=== PATIENT | male | born 1940 | race Caucasian/White ===

== ENCOUNTER → 2018-01-19 16:12 | Outpatient (CLI) | payer MEDICARE, SELFPAY ==
--- NOTE | 2018-01-19 16:34 | CT_ITS ---
STUDY: CT BRAIN WITHOUT CONTRAST REASON FOR EXAM: Male, 78 years old. Fall. RADIATION DOSAGE (If Supplied By Facility): CTDIvol = ( 60.81 ) mGy, DLP = ( 1067.08 ) mGycm TECHNIQUE: Transaxial CT imaging of the brain was performed without administration of intravenous contrast material. Individualized dose optimization techniques were used for this CT. COMPARISON: 09/12/2014. FINDINGS: Normal soft tissue structures. Normal calvarium. There is mild cerebral atrophy with widening of the extra-axial spaces and ventricular dilatation. There are areas of decreased attenuation within the white matter tracts of the supratentorial brain, consistent with microvascular disease changes. Normal basal ganglia and thalami. Normal brainstem. There is mild cerebellar atrophy. There is no intracranial hemorrhage. There are no findings of an acute ischemic infarction. Normal visualized paranasal sinuses. CT/Brain/Head without Contrast IMPRESSION: No acute abnormality. Mild atrophy and White matter disease. Electronically Signed: Aayush Sargent MD at 17:07 EDT , Service support ,
== END ==
PROVIDERS: Family Provider Family Medicine; PCP Family Medicine
DX: S06.0X0A Concussion without loss of consciousness, initial encounter (principal); W19.XXXA Unspecified fall, initial encounter; S00.11XA Contusion of right eyelid and periocular area, initial encounter; R51 Headache
CPT/HCPCS: 70450

== ENCOUNTER → 2018-02-11 06:39 | Outpatient (CLI) | payer MEDICARE, SELFPAY ==
--- NOTE | 2018-02-11 09:21 | STRESSREP ---
Stress Test Report Pharmacologic myocardial perfusion stress test. 78-year-old male with a history of abnormal EKG test next Stress protocol: Resting EKG demonstrates sinus bradycardia with a rate of 60 bpm resting blood pressure is 138/92 mmHg. Occasional premature ventricular complexes are noted. 0.4 mg of regadenoson was infused per usual protocol followed by rapid intravenous saline flush injection continuous EKG monitoring was performed. Patient maintained sinus rhythm throughout the recording. There were frequent premature ventricular complexes noted which were mostly unifocal. The maximum heart rate attained was 83 bpm which was 58% of maximum predicted heart rate the maximum workload attained was 1 metabolic equivalent. At rest there were no ST or T-wave changes noted suggest ischemia at peak infusion no ST or T-wave changes were noted suggest ischemia. No clinical angina was noted the resting blood pressure 7 and 38/92 with a final blood pressure 120/82. Myocardial perfusion protocol. 14.1 mCi of technetium 99m sestamibi was injected at rest. 0.4 mg of regadenoson was infused per usual protocol peak infusion 44.4 mCi of technetium 99m sestamibi was injected stress images were obtained stress and rest images were reconstructed and compared in the short axis vertical long and horizontal long axis. Gated images were also obtained. Perfusion SPECT analysis. Review of the stress images demonstrate normal uptake of tracer noted in the septum anterior wall and lateral wall. The inferior wall demonstrates mildly reduced perfusion especially in the base to mid inferior wall. The resting images demonstrate mild improvement suggesting a mild amount of inferior ischemia on this scan. No previous infarct is noted. Gated SPECT analysis: Gated ejection fraction is 52%. Conclusion: Mildly abnormal pharmacologic myocardial perfusion stress test with a small amount of basal to mid inferior ischemia. Preserved ejection fraction.
== END ==
PROVIDERS: Family Provider Family Medicine; PCP Family Medicine
DX: R94.31 Abnormal electrocardiogram [ECG] [EKG] (principal); I49.3 Ventricular premature depolarization
CPT/HCPCS: 78452; 93017; A9500; A4216; J2785

== ENCOUNTER → 2018-03-02 09:37 | Day surgery (SDC) | payer MEDICARE, SELFPAY ==
--- NOTE | 2018-02-23 12:56 | RAD_ITS ---
STUDY: X-RAY CHEST REASON FOR EXAM: Male, 78 years old. Chest wall pain TECHNIQUE: PA and lateral views of the chest. COMPARISON: None. FINDINGS: There are interstitial fibrotic changes of the lungs. There is no demonstrated pleural abnormality. Normal size heart. Normal mediastinum and eliu. Normal visualized pulmonary arteries. There is atherosclerotic calcification of the aortic arch with tortuosity. There are diffuse degenerative changes of the visualized thoracic spine. Normal visualized ribs, clavicles, and shoulders. There is no demonstrated abnormality of the visualized soft tissue structures of the upper abdomen. RAD/Chest PA and Lateral IMPRESSION: Degenerative changes, as described above. No demonstrated acute cardiopulmonary process. Electronically Signed: Herminio Jo MD at 13:20 EDT , Service support ,
[2018-02-23 13:29] LABS: Absolute Neutrophil Count 3.9 X10^3/uL (2.0-7.7); Basophil% 1.5 % (0-1); Eosinophil# 0.36 X10^3/uL; Eosinophils% 5.3 % (0-5); Hematocrit 47.2 % (40-54); Hemoglobin 16.3 g/dl (13.0-16.5); Lymphocyte % 25.1 % (19-41); Mean Corp Hgb Conc 34.5 g/gl (32-36); Mean Corpuscular Hgb 30.9 pg (27.0-32.0); Mean Corpuscular Volume 89.6 fL (80-94); Mean Platelet Vol. 10.5 fl (6.2-12.0); Monocyte# 0.68 X10^3/uL; Neutrophil # 3.94 X10^3/uL (2.7-7.7); Neutrophil % 58.1 % (47-70); Platelet Count 241 K/mm3 (150-450); RBC Distribution Width CV 13.6 % (11.6-14.6); RBC Distribution Width SD 44.9 fl (35.1-43.9); Red Blood Count 5.27 M/mm3 (4.6-6.2); White Blood Count 6.8 K/mm3 (4.4-11.0)
[2018-02-23 13:42] LABS: International Normalized Ratio 1.1; POSITIVE COUNT NO; POSITIVE DIFFERENTIAL NO; POSITIVE MORPHOLOGY NO; Prothrombin Time (Protime)PT. 14.4 SECONDS (11.7-14.9)
[2018-02-23 13:52] LABS: Anion Gap 7 (5-15); BUN 14 mg/dL (7-18); BUN/Creat Ratio 10.5 RATIO (10-20); Calcium,Total 9.3 mg/dL (8.5-10.1); Chloride 111 mmol/L (98-107); Creatinine, Serum 1.33 mg/dL (0.70-1.30); EST Glomerular Filtration Rate 55 mL/min (>60); Est Glom Filt Rate - Afr Amer 67 mL/min (>60); Glucose 87 mg/dL (74-106); Potassium 4.2 mmol/L (3.5-5.1); Sodium Level 143 mmol/L (136-145)
[2018-02-27 11:41] VITALS: BMI 30.4
--- NOTE | 2018-03-02 11:09 | CL.D_ITS ---
Patient Name: MEREDITH BARRETT Study Date: 03/02/2018 Performing: Ho Dietz MD Ht: 66.14 inches 168 cm : 1940 Wt: 189.6 lbs 86 kg Age: 78 Gender: male BSA: 1.96 PROCEDURE(S) PERFORMED QL00-[id number]/COR/LV CLINICAL PROFILE AND INDICATIONS Indications: Syncope Heart Failure: None Stress/Imaging Stress Test w/SPECT MPI: Yes Result: Positive Low RiskStress Test with SPECT MPI: Positive Low Risk CAD Presentations: No Sxs, no angina. CONCLUSIONS Non obstructive coronary arteries RECOMMENDATIONS Medical therapy DESCRIPTION OF PROCEDURE The patient arrived to the procedure lab. The risks and benefits of the procedure as well as a full d escription of our services here and current unavailability of surgical backup were fully explained to the patient and/or their significant other prior to the catheterization. The Timeout was completed, verifying the correct patient and procedure. The patient's procedural site was prepped and draped in the usual fashion. Local anesthetic was given subcutaneously to right radial region with Lidocaine 2% . Using a modified Seldinger technique, arterial access was obtained via the right radial artery, a 6 Fr sheath was inserted. Left Coronary Artery selective angiography was performed in multiple views u sing a 5 Fr. 4.0 [place] catheter. Right Coronary Artery selective angiography was then performed in mu ltiple views using a 5 Fr. 4.0 [place] catheter. Left Ventriculography was performed in RODRIGUEZ projection using a 5 Fr. [place] catheter. LV to AO pullback pressures were then recorded.The arterial sheath wa s pulled and a TR Band was applied for hemostasis 16cc air inserted CORONARY ANGIOGRAPHY DOMINANCE: Left Dominant LEFT HEART ASSESSMENT Left Ventricular Ejection Fraction: by LV Gram 53 % Normal LV wall motion Normal Left Ventricular systolic function LEFT MAIN: Angiographically normal LEFT ANTERIOR DECENDING ARTERY: Mild luminal irregularities less than 30% CIRCUMFLEX ARTERY: Moderate luminal irregularities up to 50% RIGHT CORONARY ARTERY: Mild luminal irregularities less than 30% COMPLICATIONS No Complications PROCEDURE MEDICATIONS Fentanyl 50 mcg IV Versed 1 mg IV Oxygen: 2 L/min via nasal cannula Heparin diluted in 23cc Heparinized saline. Patient given 10cc IA of this solution. 03/02/2018 10:49:0 7 Verapamil 2.5mg, Ntg 100mcgs, 2000 units of Heparin diluted in 23cc Heparinized saline. Patient give n 10cc IA of this solution. 03/02/2018 10:49:07 SUMMARY OF HEMODYNAMIC DATA Time AIR REST ECG 10:02:25 AO 80/50 (64) SA 10:51:27 LV 80/-1, 2 10:58:59 LV 84/0, 2 10:59:06 LV 66/-4, 1 11:00:06 LVp 72/-2, 1 11:00:16 AOp 77/40 (56) 11:00:21 AOp 89/45 (63) 11:00:40 Signed By Ho Dietz MD On 03/02/2018 11:08:31 Ho Dietz MD
== END ==
PROVIDERS: Family Provider Family Medicine; PCP Family Medicine; Visit Provider Internal Medicine Cardiovascular Disease
DX: R94.39 Abnormal result of other cardiovascular function study (principal); R55 Syncope and collapse; E78.00 Pure hypercholesterolemia, unspecified; I10 Essential (primary) hypertension; I25.10 Atherosclerotic heart disease of native coronary artery without angina pectoris; K57.90 Diverticulosis of intestine, part unspecified, without perforation or abscess without bleeding; K21.9 Gastro-esophageal reflux disease without esophagitis; I73.9 Peripheral vascular disease, unspecified; G25.0 Essential tremor; Z79.82 Long term (current) use of aspirin; Z79.899 Other long term (current) drug therapy
CPT/HCPCS: 36415; 80048; 85025; 85610; 93458; 99152; 99153; J7040; Q9967; C1769; C1894

== ENCOUNTER → 2018-08-24 10:32 | Outpatient (REF) | payer SELFPAY | LOC: CVS 10:32 | PROVIDERS: Family Provider Family Medicine; PCP Family Medicine; Referring Provider Nurse Practitioner Family; Visit Provider Nurse Practitioner Family | DX: R00.2 Palpitations (principal) ==

== ENCOUNTER → 2019-03-04 | Outpatient (CLI) | payer MEDICARE, SELFPAY ==
[2018-08-19 11:10] VITALS: BMI 30.7
[2019-03-04 09:37] LABS: AST(SGOT) 25 U/L (15-37); Alanine Aminotransfer ALT/SGPT 30 U/L (16-61); Albumin, Serum 3.7 g/dL (3.2-5.0); Alkaline Phosphatase 62 U/L (45-117); Bilirubin, Direct 0.16 mg/dL (0.00-0.30); Cholesterol 144 mg/dL (200); Globulin 3.2 g/dL (2.2-4.2); High Density Lipoprotein 41 mg/dL; Protein, Total 6.9 g/dL (6.4-8.2); Triglycerides 120 mg/dL; Very Low Density Lipoprotein 24 mg/dL (5-40)
== END | disposition home or self-care (01) ==
LOC: LAB 08:10
PROVIDERS: Family Provider Family Medicine; PCP Family Medicine; Referring Provider Nurse Practitioner Family; Visit Provider Nurse Practitioner Family
DX: I25.10 Atherosclerotic heart disease of native coronary artery without angina pectoris (principal); E78.5 Hyperlipidemia, unspecified
CPT/HCPCS: 36415; 80061; 80076

== ENCOUNTER 2019-07-14 08:22 | Day surgery (SDC) | payer MEDICARE, SELFPAY ==
[2019-03-17 09:57] VITALS: BMI 30.7
[2019-07-14 08:50] VITALS: BP 141/82; PULSE 60; RESP 16; TEMP 36.5; O2SAT 97; BMI 29.2
[2019-07-14] MEDS: Lactated Ringers 1,000 ML 100 ML IV (09:00)
[2019-07-14] MEDS: Cefazolin 2 GM in 0.9% Normal Saline 100 ML IV (10:42)
--- NOTE | 2019-07-14 10:46 | DCINST_ITS ---
Discharge Diet: Light diet - advance as tolerated Discharge Activity: Return to Normal Activity Call your doctor if your incision/area has: Sudden Increased Bleeding Call your doctor if you observe: Fever of 101 or Higher Instructions: Adult Circumcision, Care After Circumcision Additional Instructions: APPLY NEOSPORIN TO CIRCUMCISION TWICE A DAY Allergies/Adverse Reactions: Allergies No Known Allergies Allergy (Verified 07/14/19 08:48) Medications to take at Discharge Aspirin [Aspirin, Baby] 81 mg PO DAILY@0800 09/12/14 Atenolol 50 mg PO DAILY 09/12/14 Lovastatin 40 mg PO QHS 09/12/14 Pantoprazole Sodium [Protonix] 40 mg PO DINNER 09/12/14 calcium carbonate 600 mg (1,500 mg)-vitamin D3 200 unit tablet 1 tab PO QDAY 02/16/18 cholecalciferol (vitamin D3) 1,000 unit (25 mcg) tablet 1,000 unit PO QDAY 02/16/18 Hydrocodone/Acetaminophen [Viola 5-325 Tablet] 1 ea PO Q4H PRN PRN 5 Days #14 tab 07/14/19 The following prescriptions were given: Hydrocodone/Acetaminophen [Viola 5-325 Tablet] 1 ea PO Q4H PRN PRN 5 Days #14 tab PRN Reason: Pain Prescription Printed Primary Care Physician: David Harris MD [Primary Care Provider] - Test Results: Test results from this visit will be discussed in further detail at your follow- up appointment, if applicable. Please Follow Up With: Remy Sosa MD When: in 2 weeks, please call to make an appointment.
[2019-07-14] MEDS: Bupivacaine Mpf 0.5% 30 ML VIAL (11:20)
--- NOTE | 2019-07-14 11:29 | PCM.OPRPT ---
Report of Operation Date of Procedure: 07/14/19 Pre-Operative Diagnosis: Phimosis after prior circumcision Post-Operative Diagnosis: Phimosis Surgery/Procedure Performed:: Redo circumcision, excision of excessive skin tissue and phimosis Description of Surgical Findings:: 79-year-old male who had a prior circumcision was not a complete circumcision and the foreskin left on the area has scarred back down causing chronic pain and discomfort not able to retract the foreskin not able to pull the penis out because of this we can proceed with a circumcision but he had a prior surgical circumcision that did not remove enough tissue so we can do a redo circumcision and removal of the excess of foreskin tissue. 79-year-old male taken back to the operating room at the smooth induction of anesthesia the penis and testicles are prepped and draped in usual sterile fashion we then prepped and draped the patient in usual fashion and inspected the penis the foreskin was over the head of the penis was not able to retract the foreskin over this very hard phimotic tissue, whitish in nature, I then pulled the foreskin up did a line all the way around the subcoronal area used electrocautery to remove the excess tissue I then dissected back over the hawley and then sub-coronally and dissected all the tissue of subcoronal he I then obtained hemostasis we then reanastomosed the foreskin tissue to the subcoronal tissue to complete the circumcision the redo I excised all the excess of tight phimotic foreskin at the completion of the circumcision stitches all the way around with 304 0 chromic he was cleaned and dressed dressings were placed. Taken back to PACU good condition. Drains: none - Admit VTE Documentation VTE Present on Admission: No VTE Mechan Device Prophylaxis: SCD's
[2019-07-14 11:39] VITALS: BP 141/82; BP 156/87; PULSE 70; RESP 16; TEMP 35.9; O2SAT 92
[2019-07-14 11:45] VITALS: BP 141/82; BP 146/85; PULSE 69; RESP 16; O2SAT 97
[2019-07-14 12:00] VITALS: BP 141/82; BP 153/89; PULSE 72; RESP 16; O2SAT 96
[2019-07-14 12:15] VITALS: BP 141/82; BP 155/90; PULSE 72; RESP 16; TEMP 36.1; O2SAT 94
[2019-07-14 13:35] VITALS: BP 141/82; BP 142/77; PULSE 65; RESP 16; TEMP 36.2; O2SAT 98
== END 2019-07-14 14:13 | disposition home or self-care (01) ==
LOC: SDC 08:23 → AC 08:25
PROVIDERS: Family Provider Family Medicine; PCP Family Medicine; Referring Provider Urology; Visit Provider Urology
PROC: (CPT 54161; principal; 2019-07-14 10:15)
DX: N47.1 Phimosis (principal); N47.6 Balanoposthitis; I10 Essential (primary) hypertension; H91.90 Unspecified hearing loss, unspecified ear; K44.9 Diaphragmatic hernia without obstruction or gangrene; E78.00 Pure hypercholesterolemia, unspecified; K21.9 Gastro-esophageal reflux disease without esophagitis; Z79.82 Long term (current) use of aspirin; Z79.899 Other long term (current) drug therapy; Z87.891 Personal history of nicotine dependence
CPT/HCPCS: 00920; 54161; J7120; J2405

== ENCOUNTER 2020-02-09 17:53 | Emergency (ER) | payer MEDICARE, SELFPAY ==
[2020-02-09 17:53] VITALS: BP 141/122; PULSE 71; RESP 18; TEMP 36.4; O2SAT 96; BMI 29.5
--- NOTE | 2020-02-09 18:04 | ED.RN ---
SMALL LACERATION WITH FINGERNAIL INVOLVEMENT 3RD FINGER, LARGE LACERATION INVOLVING MUCH OF 4TH FINGER WITH SKIN FLAP HANGING, SMALL LACERATION TO 5TH FINGER
--- NOTE | 2020-02-09 18:16 | ED.VISSUMM ---
- ER Visit Summary Date of Service: 02/09/20 Chief Complaint: Right long and ring finger lacerations History of Present Illness: The patient is a 80 M who presents with lacerations to his right long and ring fingers that occurred today. Patient states he was using a table saw when the piece of wood kicked back and cut his long and ring fingers. Patient describes his pain as throbbing. Patient states the pain is worse with movement. Patient is unsure of his last tetanus. Patient denies any paresthesias or weakness. Patient denies any other injuries. Physical Examination: Vital signs are stable. Patient is afebrile. Patient is in no acute distress. Skin is warm and dry. There is a 8 cm flap laceration on the ulnar aspect of the middle and distal phalanges of the right ring finger. There is also a nailbed laceration and nail plate laceration of the right long finger. There is moderate bleeding. There are no foreign bodies visualized. There is good range of motion in all digits. Capillary refill is less than 2 seconds in all digits. Sensation was intact to light touch in all digits. Test Results: X-rays of the right hand were obtained. There are multiple small avulsion fractures of the middle and distal phalanges of the right ring finger on the radial aspect. This was interpreted by the radiologist and myself. Emergency Department Course and Treatment: Patient was given a tetanus booster. The wounds were cleaned and irrigated with copious amounts of normal saline. The right long and ring fingers were anesthetized with 1% plain lidocaine via digital block. The wound on the right ring finger was closed with 12 simple interrupted #4 -0 nylon sutures under sterile technique. The nail plate of the right long finger was removed. The wound was closed with 2 simple interrupted #5-0 Vicryl sutures and one simple interrupted #4-0 nylon suture under sterile technique. Patient tolerated the procedure well. Bacitracin, Xeroform gauze, and tube gauze dressing was applied. Patient was given a prescription for short course of [place]. Patient was given a prescription for Keflex. Patient was referred to Dr. Conti for follow-up care in 3 to 5 days. Patient was instructed to return if any signs of infection or if worse in any way. Patient understood and was agreeable with the plan. All questions were answered. Disposition: Discharge home Impression: 1. Right ring finger laceration 2. Right long finger laceration This note was generated with [employer] dictation software. It may contain incorrect words, spelling, and punctuation that were not noted in review of the chart prior to signing ED Disposition - Plan for ED Patient: Disposition: Home or Assisted Living Diagnosis: Laceration of right ring finger, Laceration of right middle finger w/o foreign body with damage to nail Instructions: ED Laceration Hand Prescriptions: Cephalexin [Keflex] 500 mg PO Q6 #40 cap Prescription Printed Hydrocodone Bitart/Apap 5-325 [[place] 5MG-325MG] 1 tab PO Q6H PRN PRN 3 Days #10 tab PRN Reason: Pain Prescription Printed Referrals: David Harris MD [Primary Care Provider] - 3-5 Days Carroll Conti MD [STAFF PHYSICIAN] - 3-5 Days
--- NOTE | 2020-02-09 18:35 | RAD_ITS ---
STUDY: X-RAY - RIGHT HAND REASON FOR EXAM: Male, 80 years old. laceration to right hand with table saw TECHNIQUE: 3 view(s) of the hand. COMPARISON: None. FINDINGS: Normal radiocarpal articulation. Normal distal radioulnar joint. Normal visualized carpal bones. Normal carpal articulations Normal carpometacarpal articulation of the thumb. Normal second through fifth carpometacarpal joints. Normal metacarpi. Normal metacarpophalangeal joint of the thumb. Normal interphalangeal joint of the thumb. Normal proximal and distal phalanges of the thumb. Normal metacarpophalangeal joints of the second through fifth fingers. Normal proximal and distal interphalangeal joints of the second through fifth fingers. There is soft tissue laceration the fourth digit in association with comminuted cortical fractures of the distal shaft of the middle phalanx and base of the distal phalanx. Small metallic foreign body noted within the soft tissues dorsal to the proximal phalanx of the fifth digit RAD/Hand Min 3 Views IMPRESSION: Soft tissue laceration of the fourth digit with associated comminuted cortical fractures of the middle and distal phalanges Electronically Signed: David Joseph MD at 18:58 EDT , Service support ,
[2020-02-09] MEDS: Cefazolin 1 GM/50 ML BAG IV (18:59)
[2020-02-09] MEDS: BACITRACIN 15 GM Tube 1 APPLIC TOPICAL (19:03)
[2020-02-09 20:14] VITALS: BP 137/84; PULSE 80; RESP 18; O2SAT 97
== END 2020-02-09 20:32 | disposition home or self-care (01) ==
PROVIDERS: Emergency Provider Emergency Medicine; PCP Family Medicine
DX: S61.312A Laceration without foreign body of right middle finger with damage to nail, initial encounter (principal); S61.214A Laceration without foreign body of right ring finger without damage to nail, initial encounter; W31.2XXA Contact with powered woodworking and forming machines, initial encounter; Y93.9 Activity, unspecified; Y92.9 Unspecified place or not applicable; R05 Cough; R51 Headache
CPT/HCPCS: 12004; 11750; 11760; 73130; 90715; 96365; 96366; 99285; A4216

== ENCOUNTER → 2020-02-15 09:28 | Outpatient (CLI) | payer MEDICARE, SELFPAY ==
[2020-02-15 08:55] VITALS: BMI 29.5
--- NOTE | 2020-02-15 09:33 | RAD_ITS ---
STUDY: X-RAY - RIGHT HAND REASON FOR EXAM: Male, 80 years old. Table saw last night to the hand -- right middle, ring and little finger wounds TECHNIQUE: 3 view(s) of the hand. COMPARISON: None. FINDINGS: Normal radiocarpal articulation. Normal distal radioulnar joint. Normal visualized carpal bones. Normal carpal articulations Normal carpometacarpal articulation of the thumb. Normal second through fifth carpometacarpal joints. Normal metacarpi. Normal metacarpophalangeal joint of the thumb. Normal interphalangeal joint of the thumb. Normal proximal and distal phalanges of the thumb. Normal metacarpophalangeal joints of the second through fifth fingers. Normal proximal and distal interphalangeal joints of the second through fifth fingers. Normal phalanges of the second through fifth fingers. Soft tissue ulceration overlying the ulnar aspect of the distal interphalangeal joint of the fourth digit. Tiny radiopacities are seen within the soft tissues suggestive of foreign bodies. A tiny metallic densities also seen overlying the dorsal aspect of the distal portion of the proximal phalanx of the fifth digit. RAD/Hand Min 3 Views IMPRESSION: Soft tissue laceration and possible foreign bodies overlying the distal interphalangeal joint of the fourth digit. Tiny metallic density in the soft tissues overlying the dorsal aspect of the distal portion of the proximal fillings of the fifth digit. Electronically Signed: Tian Gamino, at 14:57 EDT , Service support ,
== END ==
PROVIDERS: PCP Family Medicine; Referring Provider Nurse Practitioner Family; Visit Provider Nurse Practitioner Family
DX: S62.634B Displaced fracture of distal phalanx of right ring finger, initial encounter for open fracture (principal); S62.624B Displaced fracture of middle phalanx of right ring finger, initial encounter for open fracture; W31.2XXA Contact with powered woodworking and forming machines, initial encounter; S61.306A Unspecified open wound of right little finger with damage to nail, initial encounter; S61.304A Unspecified open wound of right ring finger with damage to nail, initial encounter; S61.302A Unspecified open wound of right middle finger with damage to nail, initial encounter
CPT/HCPCS: 73130

== ENCOUNTER 2022-01-25 08:12 | Outpatient (CLI) | payer MEDICARE, SELFPAY ==
--- NOTE | 2022-01-25 08:15 | RAD_ITS ---
STUDY: AIR CONTRAST UPPER GI SERIES and esophagram REASON FOR EXAM: Male, 82 years old. DYSPHAGIA FLUOROSCOPY TIME (if s. Upplied): (1 minute and 1 seconds.) minutes/seconds. 16 images were obtained. TECHNIQUE: SINGLE CONTRAST AND AIR CONTRAST FLUOROSCOPIC IMAGES. COMPARISON: None. FINDINGS: The cervical esophagus demonstrates normal motility without aspiration. There is no stricture or extrinsic mass effect. No intraluminal polypoid mass is identified. The thoracic esophagus distends well without stricture or mucosal fold thickening. No mucosal ulcerations are identified. There is no extrinsic mass effect. There are no diverticula. Large hiatal hernia with gastroesophageal reflux. The patient ingested a 12 mm tablet of barium without any difficulty. The stomach distends well without mucosal fold thickening or mucosal ulceration. There is no intraluminal mass. The duodenal bulb is freely distensible without deformity or ulceration. The duodenal sweep is normal in position and caliber. RAD/Upper GI w/BA Swallow IMPRESSION: Large hiatal hernia with gastroesophageal reflux. Electronically Signed: Tian Gamino MD at 12:31 EDT ,
== END 2022-01-25 23:59 | disposition home or self-care (01) ==
LOC: RAD 08:14
PROVIDERS: PCP Family Medicine; Referring Provider Family Medicine; Visit Provider Family Medicine
DX: R13.10 Dysphagia, unspecified (principal)
CPT/HCPCS: 74246

== ENCOUNTER 2022-05-30 08:34 | Day surgery (SDC) | payer MEDICARE, SELFPAY ==
[2022-05-30] VITALS (7 sets, daily range): BP systolic 81–142; BP diastolic 44–73; PULSE 52–68; RESP 16–18; TEMP 36.3–36.9; O2SAT 92–99; BMI 31.4
[2022-05-30] MEDS: Lactated Ringers 1,000 ML 15 ML IV (09:02)
--- NOTE | 2022-05-30 09:10 | HP.PCM_ITS ---
History and Physical Date of Admission: 05/30/22 UGO BARRETT, is a 82 M who presents to the office today for Initial consult. Artur established with this clinic 04.03.22 with referral from PCP to evaluate reflux and dysphagia. Dysphagia with food difficulty for the last several years with varying intensity by the day; denies emergent intervention/Heimlich maneuver. Reflux onset several years prior; symptoms present intermittently. Known hiatal hernia. Reflux managed with Protonix 40mg QD. EGD last performed several years ago; hiatal hernia. PMH CKD stage 3, CAD, diverticulosis, HTN, tremor, hyperlipidemia. Barium swallow 01.25.22 finding large hiatal hernia with GERD. ROS Const Constitutional: No fatigue, malaise, night sweats, weight change, sleep problems, abnormal sleep pattern or change in appetite ENT ENT: No difficulty swallowing, hoarseness or sore throat Cardio Cardiology: No chest pain at rest Gastro GI: No abdominal pain, belching, bloating, change in bowel habits, change in stool character, coffee ground emesis, constipation, cramping, diarrhea, difficulty swallowing, feeling full early, excessive flatus, incontinent of stools, Vomiting blood/hematemesis, Blood in stool, loose stools, Black,tarry stools, nausea/dyspepsia, pain with swallowing, vomiting or other Musc Musculoskeletal: No joint pain Skin Skin: No yellowing of the eye or itchy eyes Neuro Neurology: No behavioral changes Psych Psychiatric: No abnormal sleep pattern, No anxiety, No behavioral changes, No change in appetite and No depression Endo Endocrine: No fatigue or weight change Aller/Imm Allergy/Immunologic: No itchy eyes Daniel/Lymp Hematologic/Lymphatic: No easy bleeding or easy bruising Exam Const General: cooperative and comfortable Nutritional Appearance: average body habitus and well nourished [facility] Head: normal to inspection Ears: hearing grossly normal bilaterally Nose: external nose normal Face and sinus: normal facial exam Mouth: oral mucosae normal Throat: posterior oropharynx normal Eyes General: appearance normal, both eyes and all related structures Neck Neck: normal visual inspection Chest Chest palpation & inspection: normal inspection of the chest and normal palpation of entire chest wall Resp Effort & Inspection: normal respiratory effort Auscultation: Bilateral: Clear to Auscultation Cardio Palpation: normal PMI Rate: regular rate Rhythm: regular rhythm GI Inspection: normal to inspection Auscultation: normal bowel sounds Percussion: normal to percussion Palpation: no hepatosplenomegaly Skin General: no rashes or lesions noted Neuro General: patient alert Extrem General: normal to inspection Psych Affect: normal affect Quality Reporting Tobacco Screening ([facility] 138) Smoking Status: Former smoker Assessment and Plan Assessment and Plan (1) GERD (gastroesophageal reflux disease): ?Status:?Chronic ?Plan - Dr. Rubio Friend, DO: He is not having a lot of heartburn at this time.? He does get occasional chest pain when bending over and short of breath when bending over.? By his imaging he does have a large what appears to be sliding hiatal hernia.? I am suspecting that he has associated esophageal ring from acid or bile pooling into the hiatal hernia leaving the thoracic esophagus and gastric esophagus.? I would not change his protonix at this time until we have properly staged him. (2) Dysphagia: ?Status:?Acute ?Plan - Dr. Rubio Friend, DO: He will need to undergo an upper endoscopy.? The differential diagnosis for esophageal dysphagia does include esophageal ring, esophageal stenosis, sliding hiatal hernia.? He is not displaying any symptoms of organoaxial rotation volvulus formation of the stomach.? However I will be able to assess for any chronic is signs of involution in his upper GI tract when he undergoes upper endoscopy. He was explained alternatives, risk, benefits including understanding bleeding, infection, sepsis, perforation, need for emergent surgery . I have re-examined the patient. There are no clinical changes since date of exam.
--- NOTE | 2022-05-30 09:45 | EGD_PTH ---
PATIENT: MEREDITH BARRETT LOC: EN U#:[id number] AGE/SX: 82/M ROOM: RE05/30/[address]: Dr. Ramiro Patton DO : 1940 BED: DIS: 05/30/2022 SPEC #: [id number] RECD: 05/30/22 12:37 STATUS: JOE RETristin #: [id number] JUSTIN: 05/30/22 09:[address]: Ramiro Patton DEPT: SURGICAL PATHOLOGY RECD BY: Whit Portillo ENTERED: 05/30/22 13:40 SP TYPE: EGD BIOPSY LADARIUS DR: Dr. David Harris MD Tissues: Esophagus, NOS Procedures: Special Stain Group II Surgery Specimen Level IV Alcian Blue/PAS (control) HEADER OPERATION: EGD (MAC), biopsy, dilation PRE-OP DIAGNOSIS: GERD, dysphagia TISSUE SUBMITTED: Distal esophagus biopsy MICROSCOPIC DIAGNOSIS Distal esophagus, biopsy: Fragments of gastroesophageal mucosa with chronic inflammation. Intestinal metaplasia (goblet cell metaplasia) not identified. See comment. JOVANY:ha 05/31/2022 COMMENT Alcian blue/PAS stain with matched control is used in the evaluation of the specimen. MICROSCOPIC DESCRIPTION Slides are reviewed. GROSS DESCRIPTION Received in fixative is one container labeled with the patient's name and designated distal esophagus biopsy. The specimen consists of multiple irregular fragments of light trammell soft tissue that in aggregate measure 1 x 0.3 x 0.1 cm. The specimen is totally submitted in one cassette. / JOVANY:ha 05/30/2022 TC:3 CPT: 56643, 38701
--- NOTE | 2022-05-30 10:17 | OP.EGD_ITS ---
Patient Name: Artur Bone Procedure Date: 05/30/2022 9:55 AM Date of : 1940 Age: 82 Procedure: Upper GI endoscopy Indications: Dysphagia Providers: Ramiro Patton DO Medicines: Monitored Anesthesia Care Patient Profile: This is an 82 year old male. Refer to note in patient chart for documentation of history and physical. Patient has symptoms. He is status post EGD for dilation. Complications: No immediate complications. Procedure: Pre-Anesthesia Assessment: - Prior to the procedure, a History and Physical was performed, and patient medications and allergies were reviewed. The patient is competent. The risks and benefits of the procedure and the sedation options and risks were discussed with the patient. All questions were answered and informed consent was obtained. Patient identification and proposed procedure were verified by the physician in the pre-procedure area. Mental Status Examination: alert and oriented. Airway Examination: normal oropharyngeal airway and neck mobility. Respiratory Examination: clear to auscultation. CV Examination: normal. Prophylactic Antibiotics: The patient does not require prophylactic antibiotics. Prior Anticoagulants: The patient has taken no previous anticoagulant or antiplatelet agents. ASA Grade Assessment: II - A patient with mild systemic disease. After reviewing the risks and benefits, the patient was deemed in satisfactory condition to undergo the procedure. The anesthesia plan was to use moderate sedation / analgesia (conscious sedation). Immediately prior to administration of medications, the patient was re-assessed for adequacy to receive sedatives. The heart rate, respiratory rate, oxygen saturations, blood pressure, adequacy of pulmonary ventilation, and response to care were monitored throughout the procedure. The physical status of the patient was re-assessed after the procedure. After obtaining informed consent, the endoscope was passed under direct vision. Throughout the procedure, the patient's blood pressure, pulse, and oxygen saturations were monitored continuously. The gastroscope was introduced through the mouth, and advanced to the second part of duodenum. The upper GI endoscopy was accomplished without difficulty. The patient tolerated the procedure well. Scope In: 10:05:54 AM Scope Out: 10:12:20 AM Total Procedure Duration Time 0 hours 6 minutes 26 seconds Findings: Mucosal changes including ringed esophagus were found in the lower third of the esophagus. Biopsies were obtained from the proximal and distal esophagus with cold forceps for histology of suspected eosinophilic esophagitis. Verification of patient identification for the specimen was done. Estimated blood loss was minimal. A moderate Schatzki ring was found at the gastroesophageal junction. A guidewire was placed and the scope was withdrawn. Dilation was performed with a Savary dilator with no resistance at 60 Fr. The dilation site was examined following endoscope reinsertion and showed moderate improvement in luminal narrowing. Estimated blood loss was minimal. A large hiatal hernia was present. The first portion of the duodenum was normal. Impression: - Esophageal mucosal changes consistent with eosinophilic esophagitis. Biopsied. - Moderate Schatzki ring. Dilated. - Large hiatal hernia. - Normal first portion of the duodenum. Recommendation: - Discharge patient to home. - Resume previous diet. - Continue present medications. - Await pathology results. Procedure Code(s): --- Professional --- 70995, Esophagogastroduodenoscopy, flexible, transoral; with insertion of guide wire followed by passage of dilator(s) through esophagus over guide wire 86785, 59,51, Esophagogastroduodenoscopy, flexible, transoral; with biopsy, single or multiple CPT copyright 2017 [employer]. All rights reserved. The codes documented in this report are preliminary and upon administrative technician review may be revised to meet current compliance requirements. Ramiro Patton DO 05/30/2022 10:17:24 AM This report has been signed electronically. Number of Addenda: 1 Note Initiated On: 05/30/2022 9:55 AM Addendum Number: 1 Addendum Date: 08/01/2022 6:28:19 AM MAC was used as sedation for this procedure. Ramiro Patton DO 08/01/2022 6:28:24 AM This report has been signed electronically.
--- NOTE | 2022-05-30 10:17 | OP.CCLET_ITS ---
08/01/2022 David Harris MD Re : Upper GI endoscopy procedure for Artur Bone Dear Dr. Harris This procedure was performed on May. My impressions and recommendations are as follows: Impressions : - Esophageal mucosal changes consistent with eosinophilic esophagitis. Biopsied. - Moderate Schatzki ring. Dilated. - Large hiatal hernia. - Normal first portion of the duodenum. Recommendations : - Discharge patient to home. - Resume previous diet. - Continue present medications. - Await pathology results. My findings are described in the full procedure note, which is enclosed. If I can be of further assistance, please feel free to contact me at . Sincerely, Ramiro Patton, 05/30/2022 10:17:24 AM This report has been signed electronically.
== END 2022-05-30 11:01 | disposition home or self-care (01) ==
LOC: EN 08:34 → AC 08:38
PROVIDERS: PCP Family Medicine; Referring Provider Family Medicine; Visit Provider Internal Medicine Gastroenterology
PROC: 0DJ08ZZ Inspection of Upper Intestinal Tract, Via Natural or Artificial Opening Endoscopic (ICD-10-PCS; CPT 43235; principal; 2022-05-30 09:40)
DX: K20.0 Eosinophilic esophagitis (principal); I73.9 Peripheral vascular disease, unspecified; I10 Essential (primary) hypertension; I25.10 Atherosclerotic heart disease of native coronary artery without angina pectoris; N40.0 Benign prostatic hyperplasia without lower urinary tract symptoms; F41.9 Anxiety disorder, unspecified; E78.00 Pure hypercholesterolemia, unspecified; Z79.82 Long term (current) use of aspirin; Z79.899 Other long term (current) drug therapy; E66.9 Obesity, unspecified; K44.9 Diaphragmatic hernia without obstruction or gangrene; Z68.31 Body mass index [BMI] 31.0-31.9, adult; K22.2 Esophageal obstruction; K21.9 Gastro-esophageal reflux disease without esophagitis
CPT/HCPCS: 43239; 43248; 88305; 88313; J7120; C1769; J2405

== ENCOUNTER 2023-07-07 16:33 | Emergency (ER) | payer MEDICARE, SELFPAY ==
[2023-07-07 16:36] VITALS: BP 148/46; PULSE 65; RESP 17; TEMP 36.6; O2SAT 97; BMI 32.1
--- NOTE | 2023-07-07 19:15 | EDS_ITS ---
<Statement entered by Angely Gilmore MD - 07/07/23 23:15> I have personally performed a face to face assessment of the patient and have reviewed the YAKELIN Note. Patient presents due to concern for low heart rate. He and his were walking [place] of the [place] today. They stopped today both sponsored by [facility] where they were checking vital signs. Patient states that they told him his heart rate was only in the 40s. As they are walking out of the fair patient's thought he might of been breathing slightly heavier than normal and wanted to have him checked out. Patient has no complaints at this time. Patient sitting upright in bed no acute distress. Head neck examination unremarkable. Heart is regular rate and rhythm. Lung sounds are clear. Abdomen is soft and nontender. Neuro exam is normal. Patient placed on environmental monitoring specialist. EKG is sinus rhythm with occasional PVCs. Portable chest x-ray per my interpretation was chronic changes with no acute findings. Patient states that his heart rate was checked with a pulse ox meter on his finger. I advised him that especially with PVCs sometimes this would not rate every beat. At this time I see no evidence of arrhythmia or concern. I do not feel blood work is necessary at this time. Patient encouraged to return for any concerns or symptoms. HPI History of Present Illness Chief Complaint: General Illness Narrative Narrative: Patient presenting today due to an episode of bradycardia that occurred this afternoon. [place] a [place] medical tent that was offering a free vitals check. He is to obtain his vitals checked and his heart rate was in the 40s. Patient then began walking around the fair with his and his thought that he was breathing heavier than normal and wanted him to come in for evaluation. He denies any fever, chills, shortness of breath, and chest pain. [facility] Medical History Abnormal stress test Alcohol use Anxiety Atherosclerosis of [place] coronary artery of [place] heart without angina pectoris BPH (benign prostatic hyperplasia) Cardiology follow-up encounter Chewing tobacco use Claudication Contact with powered saw as cause of accidental injury Difficulty swallowing Diverticulosis Easy bruising Essential (primary) hypertension Excessive bleeding Frequent headaches Gastric reflux GERD (gastroesophageal reflux disease) Hearing problem High cholesterol History of echocardiogram History of hiatal hernia History of irregular heartbeat History of pain when walking History of stress test Hyperlipidemia Injury of back Injury of head and neck Large hiatal hernia Obesity Open fracture of distal phalanx of right ring finger Open fracture of middle phalanx of right ring finger Open wound of right little finger with damage to nail Open wound of right middle finger with damage to nail Open wound of right ring finger with damage to nail Pharyngoesophageal dysphagia Premature ventricular contractions Syncope Tremor Tremors of nervous system Wears dentures Wears glasses Home Medications aspirin 81 mg chewable tablet 81 mg PO DAILY@0800 09/12/14 [History Last Taken 06/26/19] atenolol 50 mg tablet 50 mg PO DAILY htn 09/12/14 [History Last Taken 05/30/22 06:00] lovastatin 40 mg tablet 40 mg PO QHS 09/12/14 [History Last Taken Unknown] calcium carbonate 600 mg-vitamin D3 5 mcg (200 unit) tablet (Calcium 600 with Vitamin D3) 1 tab PO QDAY 02/16/18 [History Last Taken Unknown] cholecalciferol (vitamin D3) 25 mcg (1,000 unit) tablet 1,000 unit PO BID 02/16/18 [History Last Taken Unknown] primidone 50 mg tablet 1 tab PO DAILY 05/27/22 [History Last Taken Unknown] sildenafil 100 mg tablet 100 mg PO DAILY PRN ERECTILE DISFUNSCTION 05/27/22 [History Last Taken Unknown] lansoprazole 30 mg capsule,delayed release 30 mg PO DAILY #30 caps 09/30/22 [Rx Last Taken Unknown] Allergy/AdvReac Type Severity Reaction Status Date / Time No Known Allergies Allergy Verified 07/07/23 16:38 Family History Father Diabetes Sister Breast cancer Colon cancer Surgical History History of cardiac catheterization History of colonoscopy History of esophagogastroduodenoscopy (EGD) History of left heart catheterization (02/2018) History of transurethral resection of prostate Hx of circumcision Hx of surgical procedure Social History Smoking Status: Current some day smoker tobacco type: smokeless tobacco ROS ROS ED Constitutional Constitutional ED: Denies chills or fever(s) Cardiovascular Cardiovascular: Denies chest pain or palpitations Respiratory/Chest Respiratory/Chest: Denies cough or dyspnea Gastrointestinal Gastrointestinal: Denies abdominal pain, nausea or vomiting Musculoskeletal Musculoskeletal: Denies arthralgias or myalgias Integumentary Denies rash Neurologic Neurologic: Denies weakness EXAM Physical Exam Const Vital Signs: 07/07/23 16:36 07/07/23 19:26 07/07/23 19:27 Temperature 97.9 F Temperature Source Temporal Pulse Rate 65 70 Respiratory Rate 17 16 Respiratory Effort Normal Non-Labored Blood Pressure 148/46 H 165/79 H Blood Pressure Mean 80 107 Pulse Ox 97 98 Oxygen Delivery Method Room Air Room Air Positive well nourished, well developed and no apparent distress General Appearance ED: well developed HEENT Reports normocephalic and head/scalp atraumatic Mouth ED: Yes moist mucous membranes normal Eyes PERRL and EOMs intact bilaterally Neck full ROM and supple Chest Wall inspection of chest normal Resp normal respiratory effort and clear to auscultation bilaterally Cardio regular rate and regular rhythm GI soft to palpation, non-tender, non-distended and no masses Back/Spine normal ROM and normal to inspection Extremity normal to inspection and full ROM Neuro oriented x3, CN's II-XII intact bilaterally, moves all extremities, no focal motor deficits and no sensory deficits noted Sensorium / Orientation: awake and alert Psych mental status grossly normal and thought process normal Skin no rashes or lesions noted and no wounds MDM MDM MDM Narrative Medical decision making narrative: Patient presenting today for examination due to his becoming concerned that he was breathing heavier than normally while at the [place] today. He reports that he did not feel short of breath while at the fair, he was simply hot and they were doing a lot of walking. There was a medical tent that he goes to every year to have his vitals checked and his pulse was supposedly in the 40s, however this could have been very inaccurate. His became concerned and thought that he should come in for evaluation. He is well-appearing and in no acute distress, he is 98% on room air, slightly hypertensive but otherwise vitals are unremarkable. He reports that he feels completely normal. He is not having any chest pain or shortness of breath here. EKG will be obtained to rule out arrhythmia and shows sinus rhythm with occasional PVCs. Chest x-ray obtained and reveals no acute findings. I do not feel that any laboratory work is indicated at this time. Patient will be discharged home in stable condition and is comfortable with plan. Radiography X-Ray: Read by ED Physician and Read by Radiologist Diagnostic Testing: Clinical Impression(s) from Imaging Studies Chest X-Ray 07/07/23 19:30 IMPRESSION: No acute findings in the chest. Electronically Signed: Hiram Paz MD at 20:03 EDT , EKG Initial EKG: Comments: 64 bpm, sinus rhythm with occasional PVCs, no ST elevation, r eviewed and interpreted by attending ED physician. Discharge Plan Triage Chief Complaint: General Illness ED Midlevel Provider: Cathleen Matias ED Provider: Angely Gilmore Dx/Rx/DC Orders Clinical Impression: Essential (primary) hypertension, Well adult exam Instructions: ED High Blood Pressure Hypertension Prescriptions: No Action cholecalciferol (vitamin D3) 1,000 unit tablet 1,000 unit PO BID calcium carbonate-vitamin D3 [Calcium 600 with Vitamin D3] 600 mg(1,500mg) - 200 unit tablet 1 tab PO QDAY lansoprazole 30 mg capsule,delayed release(DR/EC) 30 mg PO DAILY Qty: 30 0RF lovastatin 40 MG tablet 40 mg PO QHS Patient Comments: TK 1 T PO D WITH DINNER aspirin 81 MG tablet,chewable 81 mg PO DAILY@0800 Patient Comments: stoped for surgery. atenolol 50 MG tablet 50 mg PO DAILY Patient Comments: TK ONE T PO ONCE D primidone 50 mg tablet 1 tab PO DAILY sildenafil 100 mg Tablet 100 mg PO DAILY PRN (Reason: ERECTILE DISFUNSCTION) Rx Instructions: administer 30 minutes to 4 hours before activity Primary Care Provider: David Harris Referrals: David Harris MD [Primary Care Provider] - 5-7 Days Activity Restrictions/Additional Instructions: Please follow-up with your PCP and return for any worsening of your symptoms. Disposition Disposition: Home, Self Care Discharge Date/Time: 07/07/23 20:23
--- NOTE | 2023-07-07 19:16 | EKG12_ITS ---
Test Reason : DYSRHYTHMIA Blood Pressure : / mmHG Vent. Rate : 064 BPM Atrial Rate : 064 BPM P-R Int : 208 ms QRS Dur : 106 ms QT Int : 420 ms P-R-T Axes : 041 -07 029 degrees QTc Int : 433 ms Sinus rhythm with occasional Premature ventricular complexes Otherwise normal ECG Confirmed by ASIA IQBAL, STALIN ([id number]), television news video editor SREE KNOX ([id number]) on 07/10/2023 1:55:39 PM Referred By: Confirmed By:STALIN BETANCOURT MD
[2023-07-07 19:27] VITALS: BP 165/79; PULSE 70; RESP 16; O2SAT 98
--- NOTE | 2023-07-07 19:30 | RAD_ITS ---
EXAM: XR CHEST, 1 VIEW CLINICAL INDICATION: sob TECHNIQUE: Frontal view of the chest. COMPARISON: 02/23/2018 FINDINGS: LUNGS AND PLEURAL SPACES: Retrocardiac opacity compatible with a hiatal hernia. No pneumothorax. No effusion. HEART: Unremarkable. Cardiac silhouette not enlarged. MEDIASTINUM: See above. BONES/JOINTS: Unremarkable. SOFT TISSUES: Unremarkable. RAD/Chest 1 View (Portable) IMPRESSION: No acute findings in the chest. Electronically Signed: Hiram Paz MD at 20:03 EDT ,
== END 2023-07-07 20:23 | disposition home or self-care (01) ==
PROVIDERS: Emergency Provider Emergency Medicine; PCP Family Medicine; Visit Provider Emergency Medicine
DX: Z00.00 Encounter for general adult medical examination without abnormal findings (principal); I10 Essential (primary) hypertension; I25.10 Atherosclerotic heart disease of native coronary artery without angina pectoris; E78.00 Pure hypercholesterolemia, unspecified; Z79.899 Other long term (current) drug therapy; Z79.82 Long term (current) use of aspirin; K21.9 Gastro-esophageal reflux disease without esophagitis
CPT/HCPCS: 71045; 93005; 99282

== ENCOUNTER 2024-02-09 10:29 | Emergency (ER) | payer MEDICARE, SELFPAY ==
[2024-02-09 10:29] VITALS: BP 152/89; PULSE 87; RESP 18; TEMP 36.3; O2SAT 96; BMI 31.2
--- NOTE | 2024-02-09 11:03 | CT_ITS ---
STUDY: CT CERVICAL SPINE WITHOUT CONTRAST REASON FOR EXAM: Male, 84 years old. Laceration to the back of the head following a fall. RADIATION DOSAGE (If Supplied By Facility): CTDIvol = ( 26.95 ) mGy, DLP = ( 563.67 ) mGycm TECHNIQUE: High resolution transaxial imaging was performed without contrast material. Sagittal and coronal images were reconstructed. Individualized dose optimization techniques were used for this CT. COMPARISON: None FINDINGS: Normal craniovertebral junction. There are degenerative changes of the anterior atlantoaxial articulation. Normal odontoid process. There is straightening of the normal cervical lordosis. Normal vertebral bodies and posterior osseous elements. C2-3: Facet joint osteoarthritis and hypertrophy on the right side. Uncovertebral arthrosis. Mild degree of bilateral neural foraminal stenosis more prominent on the right side. C3-4: Facet joint osteoarthritis and hypertrophy more prominent on the left side. Minimal anterolisthesis of C3 on C4 most likely secondary to the facet joint osteoarthritis. C4-5: Marked degree of disc space narrowing. Spondylosis. Uncovertebral arthrosis and facet joint osteoarthritis on the right side causing moderate degree of right neural foraminal stenosis. C5-6: Marked degree of disc space narrowing. Spondylosis. Uncovertebral arthrosis. Moderate degree of right neural foraminal stenosis. C6-7: Marked degree of disc space narrowing. Spondylosis. Mild degree of bilateral neural foraminal stenosis. C7-T1: Marked degree of disc space narrowing and spondylosis. Calcification of the carotid bifurcations bilaterally. CT/Spine Cervical without Contras IMPRESSION: Multilevel degenerative changes, as described above. Electronically Signed: Tian Gamino MD at 12:11 EDT ,
--- NOTE | 2024-02-09 11:03 | CT_ITS ---
STUDY: CT BRAIN WITHOUT CONTRAST REASON FOR EXAM: Male, 84 years old. Head injury and laceration. RADIATION DOSAGE (If Supplied By Facility): CTDIvol = ( 44.99 ) mGy, DLP = ( 745.49 ) mGycm TECHNIQUE: Transaxial CT imaging of the brain was performed without administration of intravenous contrast material. Individualized dose optimization techniques were used for this CT. COMPARISON: Comparison is made with prior study dated January 19, 2018. FINDINGS: Small scalp hematoma overlying the posterior left parietal occipital bone. Normal calvarium. There is mild cerebral atrophy with widening of the extra-axial spaces and ventricular dilatation. There are areas of decreased attenuation within the white matter tracts of the supratentorial brain, consistent with microvascular disease changes. Normal basal ganglia and thalami. Normal brainstem. Normal cerebellum. There is no intracranial hemorrhage. There are no findings of an acute ischemic infarction. Atherosclerotic calcification of the cavernous portions of the internal carotid arteries bilaterally. Normal visualized paranasal sinuses. CT/Brain/Head without Contrast IMPRESSION: Chronic involutional changes of the brain. Small scalp hematoma overlying the posterior left parietal occipital bone. Electronically Signed: Tian Gamino MD at 12:13 EDT ,
--- NOTE | 2024-02-09 11:05 | EX.ED.GENINJ ---
HPI <MITZY Dukes - Last Filed: 02/09/24 17:13> History of Present Illness Chief Complaint: Laceration Narrative Narrative: Patient presenting today due to a mechanical fall that occurred this morning. He was outside on his way to feed his pony but he wanted to tap on the window of his house to say hello to his cat, he was standing on a cement block when he slipped and fell backwards, hitting his head on a cement planter. There was no LOC. He was on Eliquis for a DVT from the beginning of September until 9 days ago. He reports pain to the back of his head and to his neck. He does have a laceration to his posterior scalp, tetanus is up-to-date. He denies any other injury. [facility] <MITZY Dukes - Last Filed: 02/09/24 17:13> [facility] Medical History Abnormal stress test Alcohol use Anxiety Atherosclerosis of [place] coronary artery of [place] heart without angina pectoris BPH (benign prostatic hyperplasia) Cardiology follow-up encounter Chewing tobacco use Claudication Contact with powered saw as cause of accidental injury Difficulty swallowing Diverticulosis Easy bruising Essential (primary) hypertension Excessive bleeding Frequent headaches Gastric reflux GERD (gastroesophageal reflux disease) Hearing problem High cholesterol History of echocardiogram History of hiatal hernia History of irregular heartbeat History of pain when walking History of stress test Hyperlipidemia Injury of back Injury of head and neck Large hiatal hernia Obesity Open fracture of distal phalanx of right ring finger Open fracture of middle phalanx of right ring finger Open wound of right little finger with damage to nail Open wound of right middle finger with damage to nail Open wound of right ring finger with damage to nail Pharyngoesophageal dysphagia Premature ventricular contractions Syncope Tremor Tremors of nervous system Wears dentures Wears glasses Home Medications aspirin 81 mg chewable tablet 81 mg PO DAILY@0800 09/12/14 [History Last Taken 06/26/19] atenolol 50 mg tablet 50 mg PO DAILY htn 09/12/14 [History Last Taken 05/30/22 06:00] lovastatin 40 mg tablet 40 mg PO QHS 09/12/14 [History Last Taken Unknown] calcium carbonate 600 mg-vitamin D3 5 mcg (200 unit) tablet (Calcium 600 with Vitamin D3) 1 tab PO QDAY 04/23/18 [History Last Taken Unknown] cholecalciferol (vitamin D3) 25 mcg (1,000 unit) tablet 1,000 unit PO BID 02/16/18 [History Last Taken Unknown] primidone 50 mg tablet 1 tab PO DAILY 05/27/22 [History Last Taken Unknown] sildenafil 100 mg tablet 100 mg PO DAILY PRN ERECTILE DISFUNSCTION 05/27/22 [History Last Taken Unknown] lansoprazole 30 mg capsule,delayed release 30 mg PO DAILY #30 caps 09/30/22 [Rx Last Taken Unknown] Allergy/AdvReac Type Severity Reaction Status Date / Time No Known Allergies Allergy Verified 02/09/24 10:29 Family History Father Diabetes Sister Breast cancer Colon cancer Surgical History History of cardiac catheterization History of colonoscopy History of esophagogastroduodenoscopy (EGD) History of left heart catheterization (02/2018) History of transurethral resection of prostate Hx of circumcision Hx of surgical procedure Social History Smoking Status: Current some day smoker tobacco type: smokeless tobacco ROS <MITZY Dukes - Last Filed: 02/09/24 17:13> ROS ED Constitutional Constitutional ED: Denies chills or fever(s) Eyes Eyes: Denies change in vision Cardiovascular Cardiovascular: Denies chest pain or palpitations Respiratory/Chest Respiratory/Chest: Denies cough or dyspnea Gastrointestinal Gastrointestinal: Denies abdominal pain, nausea or vomiting Musculoskeletal Musculoskeletal: Reports neck pain; Denies arthralgias or myalgias Integumentary Reports laceration Neurologic Neurologic: Reports headache(s); Denies paresthesias or weakness EXAM <MITZY Dukes - Last Filed: 02/09/24 17:13> Physical Exam Const Vital Signs: 02/09/24 10:29 02/09/24 12:47 Temperature 97.3 F L 98.2 F Temperature Source Temporal Pulse Rate 87 62 Respiratory Rate 18 17 Blood Pressure 152/89 H 124/75 H Blood Pressure Mean 110 91 Pulse Ox 96 97 Oxygen Delivery Method Room Air Positive well nourished, well developed and no apparent distress General Appearance ED: well developed HEENT Reports normocephalic and head/scalp atraumatic HEENT Narrative: 2 cm full-thickness linear laceration to the posterior scalp. Mouth ED: Yes moist mucous membranes normal Eyes PERRL and EOMs intact bilaterally Neck full ROM Neck Narrative: Minimal midline cervical tenderness, no step-offs. Chest Wall inspection of chest normal Resp normal respiratory effort and clear to auscultation bilaterally Cardio regular rate and regular rhythm GI soft to palpation, non-tender, non-distended and no masses Back/Spine normal ROM and normal to inspection Extremity normal to inspection and full ROM Neuro oriented x3, CN's II-XII intact bilaterally, moves all extremities, no focal motor deficits and no sensory deficits noted Sensorium / Orientation: awake and alert Motor Exam: strength 5/5 throughout Psych mental status grossly normal and thought process normal <Dr. Werner Alston, DO - Last Filed: 02/09/24 14:57> Physical Exam Const Vital Signs: 02/09/24 10:29 02/09/24 12:47 Temperature 97.3 F L 98.2 F Temperature Source Temporal Pulse Rate 87 62 Respiratory Rate 18 17 Blood Pressure 152/89 H 124/75 H Blood Pressure Mean 110 91 Pulse Ox 96 97 Oxygen Delivery Method Room Air PROC <MITZY Dukes - Last Filed: 02/09/24 17:13> Procedures Lacerations laceration: Length: 2 cm Depth: Sub Q Laceration repair: Irrigated and Lidocaine with epi Number of Sutures/Devonte: 5 Comment: [employer] [facility] <MITZY Dukes - Last Filed: 02/09/24 17:13> [facility] Narrative Medical decision making narrative: Patient presenting due to a mechanical fall that occurred today. He fell backwards and hit his head on a cement block, there was no LOC. He does report pain to the back of his head and to his neck. He does have minimal midline cervical tenderness, 5 out of 5 strength and sensation in the upper extremities. Head and cervical spine CT will be obtained to rule out intracranial bleed and cervical fracture. I did offer analgesia, patient declines. Laceration was copiously irrigated with saline, cleaned with chlorhexidine, devonte were placed. Patient tolerated procedure well. Return instructions were given, patient is to have devonte out in 10 to 14 days. He is comfortable with plan. Radiography Diagnostic Testing: Clinical Impression(s) from Imaging Studies Brain CT 02/09/24 11:03 IMPRESSION: Chronic involutional changes of the brain. Small scalp hematoma overlying the posterior left parietal occipital bone. Electronically Signed: Tian Gamino MD at 12:13 EDT , Cervical Spine CT 02/09/24 11:03 IMPRESSION: Multilevel degenerative changes, as described above. Electronically Signed: Tian Gamino MD at 12:11 EDT , <Dr. Werner Alston, DO - Last Filed: 02/09/24 14:57> MDM Radiography Diagnostic Testing: Clinical Impression(s) from Imaging Studies Brain CT 02/09/24 11:03 IMPRESSION: Chronic involutional changes of the brain. Small scalp hematoma overlying the posterior left parietal occipital bone. Electronically Signed: Tian Gamino MD at 12:13 EDT , Cervical Spine CT 02/09/24 11:03 IMPRESSION: Multilevel degenerative changes, as described above. Electronically Signed: Tian Gamino MD at 12:11 EDT , Treatment and Re-Evaluation Narrative: I have personally performed a face to face assessment of the patient and have reviewed the YAKELIN Note. I performed a substantive portion of the visit including all aspects of the following. My dawn findings include: History: Patient presents with scalp laceration that occurred today. Patient states he fell backwards and hit his head. Patient denies any LOC or cough. Patient complains of pain in his neck and occipital scalp. Patient states his last tetanus was within 5 years. Patient denies any paresthesias or weakness. Patient denies any nausea or vomiting. Patient denies any visual changes. Exam: Vital signs are stable. Patient is afebrile. Patient is in no acute distress. Pupils are equal, round, and reactive to light bilaterally. Extraocular muscles are intact. Cranial nerves II through XII are intact. There are no focal motor or sensory deficits noted. Skin is warm and dry. There is a 2 cm full-thickness linear laceration over the occipital scalp. There is mild bleeding noted. There is no bony crepitance or step-off. There are no foreign bodies noted. There is mild tenderness over the cervical spine and paraspinal muscles. Medical Decision Making: Differential diagnosis includes intracranial bleeding, cervical spine fracture, contusion, closed head injury, and scalp laceration. CT scan of the brain will be obtained to assess for intracranial bleeding. CT scan of the cervical spine will be obtained to assess for cervical spine fracture. The wound was cleaned and repaired by the YAKELIN under my supervision. CT scan of the brain was obtained. There is no acute intracranial abnormality. There are chronic involutional changes noted. This was interpreted by the radiologist and was also independently reviewed by myself. CT scan of the cervical spine was obtained. There is no acute fracture or spondylolisthesis noted. There are multilevel degenerative changes noted. This was interpreted by the radiologist and was also independently reviewed by myself. Patient was instructed to keep the wound clean and dry. Patient was instructed to follow-up with his primary care physician in 5 to 7 days for staple removal. Patient understood and was agreeable with the plan. All questions were answered. Discharge Plan Triage Chief Complaint: Laceration ED Midlevel Provider: Cathleen Matias ED Provider: Werner Alston Dx/Rx/DC Orders Clinical Impression: Laceration of head, Cervical strain, Head injury, Fall Instructions: ED Head Injury (Adult), ED Laceration, All Closures, ED Neck Sprain or Strain Prescriptions: No Action cholecalciferol (vitamin D3) 1,000 unit tablet 1,000 unit PO BID calcium carbonate-vitamin D3 [Calcium 600 with Vitamin D3] 600 mg(1,500mg) -200 unit tablet 1 tab PO QDAY lansoprazole 30 mg capsule,delayed release(DR/EC) 30 mg PO DAILY Qty: 30 0RF lovastatin 40 MG tablet 40 mg PO QHS Patient Comments: TK 1 T PO D WITH DINNER aspirin 81 MG tablet,chewable 81 mg PO DAILY@0800 Patient Comments: stoped for surgery. atenolol 50 MG tablet 50 mg PO DAILY Patient Comments: TK ONE T PO ONCE D primidone 50 mg tablet 1 tab PO DAILY sildenafil 100 mg Tablet 100 mg PO DAILY PRN (Reason: ERECTILE DISFUNSCTION) Rx Instructions: administer 30 minutes to 4 hours before activity Primary Care Provider: David Harris Referrals: David Harris MD [Primary Care Provider] - 10-14 Days suture removal Activity Restrictions/Additional Instructions: Please have devonte removed in 10 to 14 days. Return for any worsening of your symptoms. You can take Tylenol for your pain as needed. Disposition Disposition: Home, Self Care Discharge Date/Time: 02/09/24 12:49
[2024-02-09 12:47] VITALS: BP 124/75; PULSE 62; RESP 17; TEMP 36.8; O2SAT 97
== END 2024-02-09 12:49 | disposition home or self-care (01) ==
PROVIDERS: Emergency Provider Emergency Medicine; PCP Family Medicine; Visit Provider Emergency Medicine
DX: S01.91XA Laceration without foreign body of unspecified part of head, initial encounter (principal); F17.220 Nicotine dependence, chewing tobacco, uncomplicated; S16.1XXA Strain of muscle, fascia and tendon at neck level, initial encounter; W17.89XA Other fall from one level to another, initial encounter; Y93.89 Activity, other specified; Y92.89 Other specified places as the place of occurrence of the external cause; I25.10 Atherosclerotic heart disease of native coronary artery without angina pectoris; E78.00 Pure hypercholesterolemia, unspecified; I10 Essential (primary) hypertension; Z79.82 Long term (current) use of aspirin; Z79.899 Other long term (current) drug therapy; K21.9 Gastro-esophageal reflux disease without esophagitis
CPT/HCPCS: 12001; 70450; 72125; 99282; J7030

== ENCOUNTER 2024-03-25 17:59 | Emergency (ER) | payer MEDICARE, SELFPAY ==
[2024-03-25 17:59] VITALS: BP 144/84; PULSE 76; RESP 15; TEMP 36.4; O2SAT 96; BMI 28.1
--- NOTE | 2024-03-25 18:28 | ED.VIS.LOWEX ---
HPI History of Present Illness HPI Narrative: Patient presents with right lower leg pain that began earlier this morning. Patient states he had a charley horse when he was sleeping this morning. Patient states it woke him up around 3 AM. Patient states that he was able to walk and stretch it out. Patient states it felt better. Patient states he still has some dull pain in his right calf. Patient denies any paresthesias or weakness. Patient denies any trauma or injury. Patient had a recent DVT and was on anticoagulants from September until early February. Patient is currently not on any anticoagulants. Chief Complaint: Lower Extremity Injury Informant: patient Onset/Context/Timing Onset: Today Context: Sudden Onset Timing: Continuous Quality of Pain: Dull and Aching Worsened by: Nothing Relieved by: Walking Associated Symptoms Associated Symptoms: Negative for Parasthesia, Weakness or Loss of Funtion PFSH [facility] Medical History Wears dentures Wears glasses Anxiety Alcohol use High cholesterol Easy bruising Excessive bleeding History of hiatal hernia Injury of back Injury of head and neck Tremors of nervous system Difficulty swallowing Gastric reflux Chewing tobacco use History of pain when walking History of echocardiogram History of stress test Cardiology follow-up encounter History of irregular heartbeat Pharyngoesophageal dysphagia Large hiatal hernia Open fracture of distal phalanx of right ring finger Open fracture of middle phalanx of right ring finger Contact with powered saw as cause of accidental injury Open wound of right little finger with damage to nail Open wound of right ring finger with damage to nail Open wound of right middle finger with damage to nail Hearing problem Frequent headaches Premature ventricular contractions Syncope Obesity Claudication Tremor Essential (primary) hypertension Atherosclerosis of [place] coronary artery of [place] heart without angina pectoris BPH (benign prostatic hyperplasia) Diverticulosis GERD (gastroesophageal reflux disease) Abnormal stress test Hyperlipidemia Home Medications ?Medication ?Instructions ?Recorded ?Last Taken ?Type aspirin 81 mg chewable tablet 81 mg PO DAILY@0800 09/12/14 06/26/19 History atenolol 50 mg tablet 50 mg PO DAILY htn 09/12/14 05/30/22 06:00 History lovastatin 40 mg tablet 40 mg PO QHS 09/12/14 Unknown History calcium carbonate 600 mg-vitamin 1 tab PO QDAY 02/16/18 Unknown History D3 5 mcg (200 unit) tablet (Calcium 600 with Vitamin D3) cholecalciferol (vitamin D3) 25 1,000 unit PO BID 02/16/18 Unknown History mcg (1,000 unit) tablet primidone 50 mg tablet 1 tab PO DAILY 05/27/22 Unknown History sildenafil 100 mg tablet 100 mg PO DAILY PRN ERECTILE 05/27/22 Unknown History DISFUNSCTION lansoprazole 30 mg capsule,delayed 30 mg PO DAILY #30 caps 09/30/22 Unknown Rx release apixaban 5 mg tablet (Eliquis) 5 mg PO BID #74 tabs 03/25/24 Unknown Rx Allergy/AdvReac Type Severity Reaction Status Date / Time No Known Allergies Allergy Verified 03/25/24 18:01 Family History Father Diabetes Sister Breast cancer Colon cancer Surgical History History of cardiac catheterization Hx of surgical procedure Hx of circumcision History of left heart catheterization (02/2018) History of transurethral resection of prostate History of esophagogastroduodenoscopy (EGD) History of colonoscopy Social History Smoking Status: Current some day smoker tobacco type: smokeless tobacco ROS ROS ED Constitutional Constitutional ED: Denies chills or fever(s) Eyes Eyes: Denies blurry vision or change in vision ENT ENT ED: Denies rhinorrhea or sore throat Cardiovascular Cardiovascular: Denies chest pain or palpitations Respiratory/Chest Respiratory/Chest: Denies cough or dyspnea Gastrointestinal Gastrointestinal: Denies nausea or vomiting Genitourinary Genitourinary ED: Denies dysuria or hematuria Musculoskeletal Musculoskeletal: Reports back pain; Denies neck pain Integumentary Denies abscess or rash Neurologic Neurologic: Denies headache(s) or weakness Allergic/Immunologic Allergic/Immunologic ED: Denies mouth swelling or urticaria EXAM Physical Exam Const Vital Signs: 03/25/24 17:59 Temperature 97.6 F L Temperature Source Temporal Pulse Rate 76 Respiratory Rate 15 Blood Pressure 144/84 H Blood Pressure Mean 104 Pulse Ox 96 Oxygen Delivery Method Room Air Positive well nourished and well developed General Appearance ED: well developed and NAD HEENT Reports moist mucous membranes Neck full ROM and supple Extremity Extremity Narrative: There is tenderness over the right calf and popliteal area. There is no edema noted. There is no ecchymosis noted. There is some pain with dorsiflexion of the right ankle. Pedal pulses are equal bilaterally. Sensation was intact to light touch bilaterally in the lower extremities. Strength is 5/5 bilaterally in the lower extremities. Neuro oriented x3, CN's II-XII intact bilaterally, moves all extremities and no sensory deficits noted Sensorium / Orientation: alert Motor Exam: strength 5/5 throughout Psych mental status grossly normal MDM MDM MDM Narrative Medical decision making narrative: Differential diagnosis includes calf strain and DVT. Venous duplex of the right lower extremity will be obtained to assess for DVT. Radiography Diagnostic Testing: Venous duplex of the right lower extremity was obtained. There is a DVT noted in the right popliteal and peroneal vein. This was interpreted by the radiologist and was also dependently reviewed by myself. Treatment and Re-Evaluation Narrative: Patient was advised of his findings. Patient was given a dose of Eliquis here. Patient was given a prescription for Eliquis. Patient was instructed to follow-up with his primary care physician in 5 to 7 days. Patient and spouse understood and were agreeable with the plan. All questions were answered. Discharge Plan Triage Chief Complaint: Lower Extremity Injury ED Provider: Werner Alston Dx/Rx/DC Orders Clinical Impression: Acute deep vein thrombosis (DVT) of right popliteal vein, Acute deep vein thrombosis (DVT) of right peroneal vein Instructions: ED Deep Vein Thrombosis (DVT) Prescriptions: New Eliquis 5 mg tablet 5 mg PO BID Qty: 74 0RF Rx Instructions: 10 mg twice a day for the first week. Then 5 mg twice a day. No Action cholecalciferol (vitamin D3) 1,000 unit tablet 1,000 unit PO BID calcium carbonate-vitamin D3 [Calcium 600 with Vitamin D3] 600 mg(1,500mg) -200 unit tablet 1 tab PO QDAY lansoprazole 30 mg capsule,delayed release(DR/EC) 30 mg PO DAILY Qty: 30 0RF lovastatin 40 MG tablet 40 mg PO QHS Patient Comments: TK 1 T PO D WITH DINNER aspirin 81 MG tablet,chewable 81 mg PO DAILY@0800 Patient Comments: stoped for surgery. atenolol 50 MG tablet 50 mg PO DAILY Patient Comments: TK ONE T PO ONCE D primidone 50 mg tablet 1 tab PO DAILY sildenafil 100 mg Tablet 100 mg PO DAILY PRN (Reason: ERECTILE DISFUNSCTION) Rx Instructions: administer 30 minutes to 4 hours before activity Primary Care Provider: David Harris Referrals: David Harris MD [Primary Care Provider] - 5-7 Days Print Language: Kinyarwanda Disposition Disposition: Home, Self Care
--- NOTE | 2024-03-25 18:57 | US_ITS ---
We are attempting to reach an attending provider to discuss findings. An addendum with communication details will be sent when the communication is complete. EXAM: US DUPLEX RIGHT LOWER EXTREMITY VEINS CLINICAL INDICATION: RIGHT LEG PAIN, HX OF RT DVT TECHNIQUE: Real-time duplex ultrasound scan of the right lower extremity veins integrating B-mode two-dimensional vascular structure, Doppler spectral analysis, color flow Doppler imaging and compression. COMPARISON: No relevant prior studies available. FINDINGS: DEEP VEINS: The right common femoral vein is normally compressible demonstrating normal color flow and augmentation. The right superficial femoral vein is patent with normal compressibility, color flow, normal augmentation, and spontaneity demonstrated. The posterior tibial vein is patent. There is venous thrombus within the right popliteal vein and the right peroneal vein. These vessels are noncompressible. The left common femoral vein is patent. SUPERFICIAL VEINS: No significant abnormality. No thrombus in the visualized great saphenous vein. SOFT TISSUES: No significant findings. No popliteal cyst. US/Venous Duplex Imag/Limited/Uni IMPRESSION: Right popliteal and peroneal vein DVT. Electronically Signed: Pancho Maldonado DO at 20:19 EDT ,
[2024-03-25] MEDS: APIXABAN 5 MG TABLET PO (20:58)
== END 2024-03-25 21:01 | disposition home or self-care (01) ==
PROVIDERS: Emergency Provider Emergency Medicine; PCP Family Medicine; Visit Provider Emergency Medicine
DX: I82.431 Acute embolism and thrombosis of right popliteal vein (principal); I82.451 Acute embolism and thrombosis of right peroneal vein; F17.220 Nicotine dependence, chewing tobacco, uncomplicated; E78.00 Pure hypercholesterolemia, unspecified; I10 Essential (primary) hypertension; I25.10 Atherosclerotic heart disease of native coronary artery without angina pectoris; Z79.82 Long term (current) use of aspirin; Z79.899 Other long term (current) drug therapy; K21.9 Gastro-esophageal reflux disease without esophagitis
CPT/HCPCS: 93971; 99282

== ENCOUNTER → 2024-12-07 | Outpatient (CLI) | payer MEDICARE, SELFPAY ==
--- NOTE | 2024-12-07 13:00 | ECHOD_ITS ---
Reason For Study Reason For Study: ARRHYTHMIA- PVCs Procedure This was a 2D Doppler, Color Flow transthoracic echocardiogram. Exam performed in department. Left Ventricle Normal LV size. Mild concentric left ventricular hypertrophy. Left ventricular systolic function is normal. The left ventricular ejection fraction is 65 %. No regional wall motion abnormalities noted. Right Ventricle Normal RV size. Normal systolic function. Atria Normal left atrium. Normal right atrium. Mitral Valve There is moderate mitral annular calcification. Mild (1+) eccentric mitral valve insufficiency. Tricuspid Valve Normal tricuspid valve. Mild (1+) tricuspid valve insufficiency. Pulmonary artery systolic pressure is 32 mmHg. Aortic Valve Trisinus/trileaflet aortic valve. Pulmonic Valve Normal pulmonic valve. Trivial pulmonic valve insufficiency. Great Vessels Normal aortic root. The pulmonary artery is normal size. Inferior vena cava collapse with respiration. Pericardium/Pleural No pericardial effusion. MMode/2D Measurements & Calculations LVIDd: 3.9 cm IVSd: 1.2 cm LVOT diam: 2.1 cm LVIDs: 2.3 cm LVPWd: 1.2 cm LVOT area: 3.3 cm2 RVDd: 4.1 cm FS: 41.1 % asc Aorta Diam: 3.6 cm LAV(MOD-bp): 40.1 ml LVAd ap4: 25.5 cm2 LAV(MOD-bp) Indexed: 20.9 ml/m2 LVLd ap4: 7.4 cm LAV(MOD-sp2): 33.6 ml EDV(MOD-sp4): 72.8 ml LAV(MOD-sp4): 46.6 ml EDV(sp4-el): 74.7 ml LVAs ap4: 13.7 cm2 LVLs ap4: 6.0 cm ESV(MOD-sp4): 28.0 ml ESV(sp4-el): 26.6 ml EF(MOD-sp4): 61.6 % EF(sp4-el): 64.4 % LVAd ap2: 23.1 cm2 SV(MOD-sp4): 44.8 ml SV(MOD-sp2): 39.7 ml LVLd ap2: 7.5 cm SI(MOD-sp4): 23.3 ml/m2 SI(MOD-sp2): 20.6 ml/m2 EDV(MOD-sp2): 60.0 ml EDV(sp2-el): 60.6 ml LVAs ap2: 12.5 cm2 LVLs ap2: 6.4 cm ESV(MOD-sp2): 20.4 ml ESV(sp2-el): 20.6 ml EF(MOD-sp2): 66.1 % SV(sp4-el): 48.1 ml Ao sinus diam: 3.[address] Junction: 3.0 cm LA dimension(2D): 2.7 cm LA A4 area: 17.5 cm2 RA A4 area: 9.5 cm2 TAPSE: 1.7 cm Time Measurements MV dec time: 0.27 sec Doppler Measurements & Calculations MV E max dannie: 57.7 cm/sec Lat Peak E' Dannie: 9.7 cm/sec Med Peak E' Dannie: 6.7 cm/sec MV A max dannie: 68.2 cm/sec E/E' lat: 6.0 E/E' med: 8.6 MV E/A: 0.85 MV dec slope: 214.2 cm/sec2 Ao V2 max: 133.5 cm/sec AI max dannie: 269.7 cm/sec Ao max P.1 mmHg AI max P.2 mmHg Ao V2 mean: 84.7 cm/sec AI dec slope: 77.9 cm/sec2 Ao mean P.4 mmHg AI P1/2t: 1014 msec Ao V2 VTI: 29.5 cm AV (velocity ratio): 0.68 MALCOLM(I,D): 2.2 cm2 MALCOLM(V,D): 2.4 cm2 LV V1 max: 96.5 cm/sec SV(LVOT): 66.2 ml PA V2 max: 95.4 cm/sec LV V1 max P.7 mmHg LV V1 mean P.8 mmHg LV V1 mean: 61.8 cm/sec LV V1 VTI: 20.0 cm TR max dannie: 264.9 cm/sec TR max P.1 mmHg ECHO/Echo Complete Interpretation Summary Normal LV size. Mild concentric left ventricular hypertrophy. Left ventricular systolic function is normal. The left ventricular ejection fraction is 65 %. There is moderate mitral annular calcification. Mild (1+) eccentric mitral valve insufficiency. Ordering Physician: Ho Dietz Referring Physician: ADRIANNE REN Performed By: Lidia Puente RDCS
== END | disposition home or self-care (01) ==
LOC: CVS 12:59
PROVIDERS: PCP Family Medicine; Referring Provider Internal Medicine Cardiovascular Disease; Visit Provider Internal Medicine Cardiovascular Disease
DX: I49.3 Ventricular premature depolarization (principal)
CPT/HCPCS: 93306

== ENCOUNTER → 2025-01-20 | Outpatient (CLI) | payer MEDICARE, SELFPAY ==
--- NOTE | 2025-01-20 13:41 | VDLE_ITS ---
Reason For Study Reason For Study: RLE Pain RIGHT LEFT CFV is compressible, spontaneous, phasic, competent CFV is compressible, spontaneous, phasic, competent, and demonstrates normal augmentation. and demonstrates normal augmentation. FV is compressible, spontaneous, phasic, competent and demonstrates normal augmentation. Distal Femoral Vein appears PARTIALLY COMPRESSIBLE with bright and web-like intraluminal echoes consistent with CHRONIC DVT. POP V is compressible, phasic, and INCOMPETENT for greater than 1.0 second. T/P Trunk is compressible. PTV is compressible. RT PerV is compressible. Procedure This is a venous duplex using B-mode, color flow and spectral Doppler. Exam performed in department. The exam was diagnostic. A preliminary report was called and/or faxed to Dr. Harris office. VL/Venous Duplex US, Unilateral Interpretation Summary Chronic deep vein thrombosis is noted in the right femoral vein. Positive for reflux in the right popliteal vein Ordering Physician: David Harris Referring Physician: David Harris Performed By: Tico Cerna RVT
== END | disposition home or self-care (01) ==
LOC: CVS 13:38
PROVIDERS: PCP Family Medicine; Referring Provider Family Medicine; Visit Provider Family Medicine
DX: M79.661 Pain in right lower leg (principal); Z86.718 Personal history of other venous thrombosis and embolism
CPT/HCPCS: 93971